=== PATIENT | male | born 1955 | race Caucasian/White ===

== ENCOUNTER 2016-12-07 09:52 | Outpatient (CLI) | payer OTHER | END 2016-12-07 19:11 | disposition home or self-care (01) | LOC: SMI 09:52 | PROVIDERS: ATTEND Psychiatry & Neurology Neurology | DX: M47.892 Other spondylosis, cervical region (principal); M47.894 Other spondylosis, thoracic region; M48.02 Spinal stenosis, cervical region; M25.78 Osteophyte, vertebrae | CPT/HCPCS: 72141; 72146 ==

== ENCOUNTER 2017-03-11 06:26 | Inpatient (IN) | payer OTHER ==
[~2017-03-11] VITALS: Ht 182.9 cm; Wt 106.6 kg
[2017-03-11 06:26] VITALS: BP_SYST 138
[2017-03-11] MEDS ORDERED: NACL 0.9% 1,000 ML IV ONE (06:46)
[2017-03-11] MEDS ORDERED: KETOROLAC TROMETHAMINE 30 MG VIAL IVP ONE (07:00)
[2017-03-11] MEDS ORDERED: ONDANSETRON HCL 4 MG/2 ML VIAL IVP ONE (07:00)
[2017-03-11 07:22] LABS: CREATININE 0.87 mg/dL (0.55-1.30)
[2017-03-11 07:23] LABS: BILIRUBIN,URINE NEGATIVE (NEGATIVE); CLARITY/URINE CLEAR (CLEAR); COLOR,URINE YELLOW (YELLOW); GLUCOSE,URINE NEGATIVE (NEGATIVE); KETONES,URINE NEGATIVE (NEGATIVE); LEUKOCYTE ESTERASE ,URINE NEGATIVE (NEGATIVE); NITRITE, URINE NEGATIVE (NEGATIVE); PH,URINE 6.5 (5.0-8.0); PROTEIN URINE NEGATIVE (NEGATIVE); UROBILINOGEN,URINE 0.2 (0.2-1.0)
[2017-03-11 07:24] LABS: BASOPHILS # (AUTO) 0.1 K/uL (0.0-0.2); BASOPHILS % (AUTO) 0.5 % (0.0-2.0); EOSINOPHILS # (AUTO) 0.1 K/uL (0.0-0.4); EOSINOPHILS % (AUTO) 0.5 % (0.0-4.0); HEMATOCRIT 47.5 % (36-54); HEMOGLOBIN 15.8 g/dL (14.0-18.0); LYMPHOCYTES # (AUTO) 2.1 K/uL (1.0-5.5); LYMPHOCYTES % (AUTO) 20.8 % (20.5-51.5); MEAN CORPUSCULAR HEMOGLOBIN 30 pg (27-31); MEAN CORPUSCULAR HGB CONC 33 % (32-36); MEAN CORPUSCULAR VOLUME 92 fL (79.0-98.0); MONOCYTES # (AUTO) 0.6 K/uL (0.0-1.0); MONOCYTES % (AUTO) 5.5 % (1.7-9.3); NEUTROPHILS # (AUTO) 7.2 K/uL (1.8-7.7); NEUTROPHILS % (AUTO) 72.7 % (40.0-70.0); PLATELET COUNT (AUTO) 404 K/uL (130-430); RED BLOOD CELL COUNT(AUTO) 5.18 MIL/uL (4.2-6.2); RED CELL DISTRIBUTION WIDTH 13.1 % (9.0-15.0); WHITE BLOOD COUNT (AUTO) 10.1 K/uL (4.8-10.8)
[2017-03-11 07:28] LABS: ALBUMIN 3.9 g/dL (3.4-4.8); TOTAL BILIRUBIN 0.7 mg/dL (0.0-1.0); TOTAL PROTEIN, SERUM 7.5 g/dL (6.4-8.3)
[2017-03-11 07:32] LABS: POTASSIUM 2.6 mmol/L (3.5-5.1)
[2017-03-11 07:41] LABS: BLOOD, URINE TRACE (NEGATIVE)
[2017-03-11] MEDS ORDERED: KCL 40 mEq in D5W 1000 mL 1,000 ML IV ONE (07:45)
[2017-03-11 07:51] LABS: BACTERIA,URINE FEW /HPF (None Seen); MUCUS,URINE 1+ /LPF (None Seen); WBC,URINE 0-3 /HPF (0-3)
[2017-03-11] MEDS ORDERED: POTASSIUM CHLORIDE 20 MEQ TAB.PRT.SR PO ONE (08:30)
[2017-03-11] MEDS ORDERED: HYDROmorphone 1 MG INJ. 1 MG/ML AMPUL IVP ONE (08:30)
[2017-03-11] MEDS ORDERED: HYDROcodone/ACETAMIN 10-325 MG TAB PO PRN (08:30)
[2017-03-11] MEDS ORDERED: METHOCARBAMOL 1000 MG/10 ML VIAL IVP SCH (08:45)
[2017-03-11] MEDS ORDERED: BENA40TA2 PO (08:56)
[2017-03-11] MEDS ORDERED: TRAM50TA2 PO (08:56)
[2017-03-11] MEDS ORDERED: HYDR12.585 PO (09:19)
[2017-03-11] MEDS ORDERED: LORA-259 PO (09:20)
[2017-03-11] MEDS ORDERED: LORazepam 2 MG/ML VIAL ONE (09:45)
[2017-03-11 09:54] VITALS: BP_SYST 114
[2017-03-11] MEDS: D5W IV SCH ×2 (11:10→17:29)
[2017-03-11] MEDS: METHOCARBAMOL IV SCH ×2 (11:10→17:29)
[2017-03-11] MEDS: NACL 0.9% 1,000 ML IV SCH ×2 (11:22→21:22)
[2017-03-11] MEDS ORDERED: MORPHINE 2 MG/ML INJ. SYRINGE IVP PRN (11:30)
[2017-03-11] MEDS ORDERED: ACETAMINOPHEN 325 MG TABLET PO PRN (11:30)
[2017-03-11] MEDS ORDERED: ONDANSETRON HCL 4 MG/2 ML VIAL IVP PRN (11:30)
[2017-03-11] MEDS: MORPHINE 2 MG/ML INJ. SYRINGE IVP PRN ×3 (11:56→21:47)
[2017-03-11 12:00] LABS: FREE T4 (FREE THYROXINE) 0.6 ng/dL (0.6-1.6); PHOSPHORUS 3.8 mg/dL (2.7-4.5); THYROID STIMULATING HORMONE 0.36 uIu/mL (0.34-4.82)
[2017-03-11] MEDS ORDERED: PANTOPRAZOLE SODIUM 40 MG/VIAL (PROTONIX) IVP ONE (12:15)
[2017-03-11 12:27] VITALS: BP_SYST 102
[2017-03-11] MEDS: LORazepam 2 MG/ML VIAL IVP PRN ×3 (14:07→23:11)
[2017-03-11 16:01] VITALS: BP_SYST 108
[2017-03-11 19:00] VITALS: BP_SYST 115
[2017-03-11] MEDS: BENAZEPRIL HCL 20 MG TABLET (LOTENSIN) PO SCH (21:00)
[2017-03-11] MEDS: DOCUSATE SODIUM 100 MG CAPSULE PO SCH (21:00)
[2017-03-11] MEDS ORDERED: BENAZEPRIL HCL 20 MG TABLET (LOTENSIN) PO SCH (21:00)
[2017-03-11] MEDS: ZOLPIDEM TARTRATE 5 MG TABLET PO SCH (21:01)
[2017-03-11 21:47] LABS: CALCIUM 7.8 mg/dL (8.4-11.0); CREATININE 0.69 mg/dL (0.55-1.30)
[2017-03-11 22:03] LABS: POTASSIUM 2.7 mmol/L (3.5-5.1)
[2017-03-12] MEDS ORDERED: KCL 40 mEq in 100 mL (PREMIX) 100 ML IV ONE ×2 (01:45→03:41)
[2017-03-12] MEDS: D5W IV SCH ×3 (01:50→17:45)
[2017-03-12] MEDS: METHOCARBAMOL IV SCH ×3 (01:50→17:45)
[2017-03-12] MEDS: MORPHINE 2 MG/ML INJ. SYRINGE IVP PRN ×5 (02:01→22:59)
[2017-03-12] MEDS: POTASSIUM CHLORIDE 40 MEQ in NS 250 ML IV SCH ×2 (02:08→05:35)
[2017-03-12] MEDS: LORazepam 2 MG/ML VIAL IVP PRN ×3 (04:52→14:33)
[2017-03-12 07:53] LABS: BASOPHILS % (AUTO) 0.3 % (0.0-2.0); EOSINOPHILS # (AUTO) 0.1 K/uL (0.0-0.4); HEMATOCRIT 41.3 % (36-54); LYMPHOCYTES # (AUTO) 2.5 K/uL (1.0-5.5); LYMPHOCYTES % (AUTO) 20.2 % (20.5-51.5); MEAN CORPUSCULAR HEMOGLOBIN 32 pg (27-31); MEAN CORPUSCULAR HGB CONC 34 % (32-36); MEAN CORPUSCULAR VOLUME 93 fL (79.0-98.0); MONOCYTES # (AUTO) 0.7 K/uL (0.0-1.0); MONOCYTES % (AUTO) 5.4 % (1.7-9.3); NEUTROPHILS # (AUTO) 9.3 K/uL (1.8-7.7); NEUTROPHILS % (AUTO) 73.1 % (40.0-70.0); PLATELET COUNT (AUTO) 320 K/uL (130-430); RED BLOOD CELL COUNT(AUTO) 4.44 MIL/uL (4.2-6.2); RED CELL DISTRIBUTION WIDTH 13.7 % (9.0-15.0); WHITE BLOOD COUNT (AUTO) 12.6 K/uL (4.8-10.8)
[2017-03-12 08:24] LABS: CALCIUM 8.1 mg/dL (8.4-11.0); CREATININE 0.71 mg/dL (0.55-1.30); PHOSPHORUS 2.8 mg/dL (2.7-4.5)
[2017-03-12] MEDS: NACL 0.9% 1,000 ML IV SCH ×2 (08:35→17:46)
[2017-03-12] MEDS: PANTOPRAZOLE SODIUM 40 MG/VIAL (PROTONIX) IVP SCH (08:35)
[2017-03-12] MEDS: BENAZEPRIL HCL 20 MG TABLET (LOTENSIN) PO SCH (08:36)
[2017-03-12] MEDS: HYDROCHLOROTHIAZIDE 12.5 MG CAPSULE (HCTZ) PO SCH (08:37)
[2017-03-12] MEDS: DOCUSATE SODIUM 100 MG CAPSULE PO SCH ×2 (08:37→20:05)
[2017-03-12 08:47] VITALS: BP_SYST 122
[2017-03-12 08:56] VITALS: BP_SYST 130
[2017-03-12 12:31] VITALS: BP_SYST 118
[2017-03-12] MEDS ORDERED: POTASSIUM CHLORIDE 20 MEQ TAB.PRT.SR PO ONE (15:30)
[2017-03-12 16:38] VITALS: BP_SYST 106
[2017-03-12] MEDS: ZOLPIDEM TARTRATE 5 MG TABLET PO SCH (20:04)
[2017-03-12 20:08] VITALS: BP_SYST 115
[2017-03-12 23:03] VITALS: BP_SYST 132
[2017-03-12 23:51] LABS: HEMOGLOBIN A1C 5.6 % (4.8-5.6)
[2017-03-13] MEDS: LORazepam 2 MG/ML VIAL IVP PRN ×2 (00:57→06:07)
[2017-03-13] MEDS: METHOCARBAMOL IV SCH (00:57)
[2017-03-13] MEDS: D5W IV SCH (00:57)
[2017-03-13 02:08] LABS: T4 (THYROXINE) 8.2 ug/dL (4.5-12.0)
[2017-03-13 04:24] VITALS: BP_SYST 104
[2017-03-13] MEDS: MORPHINE 2 MG/ML INJ. SYRINGE IVP PRN ×2 (04:42→09:04)
[2017-03-13] MEDS: NACL 0.9% 1,000 ML IV SCH (06:08)
[2017-03-13] MEDS: DOCUSATE SODIUM 100 MG CAPSULE PO SCH (09:00)
[2017-03-13] MEDS: BENAZEPRIL HCL 20 MG TABLET (LOTENSIN) PO SCH (09:06)
[2017-03-13] MEDS: HYDROCHLOROTHIAZIDE 12.5 MG CAPSULE (HCTZ) PO SCH (09:07)
[2017-03-13] MEDS: PANTOPRAZOLE SODIUM 40 MG/VIAL (PROTONIX) IVP SCH (09:07)
[2017-03-13 09:45] LABS: CALCIUM 8.1 mg/dL (8.4-11.0); CREATININE 0.66 mg/dL (0.55-1.30); POTASSIUM 3.6 mmol/L (3.5-5.1)
[2017-03-13 09:51] LABS: BASOPHILS # (AUTO) 0.1 K/uL (0.0-0.2); BASOPHILS % (AUTO) 0.5 % (0.0-2.0); EOSINOPHILS # (AUTO) 0.4 K/uL (0.0-0.4); EOSINOPHILS % (AUTO) 3.6 % (0.0-4.0); HEMATOCRIT 41.5 % (36-54); HEMOGLOBIN 14.3 g/dL (14.0-18.0); LYMPHOCYTES # (AUTO) 2.6 K/uL (1.0-5.5); LYMPHOCYTES % (AUTO) 24.3 % (20.5-51.5); MEAN CORPUSCULAR HEMOGLOBIN 32 pg (27-31); MEAN CORPUSCULAR HGB CONC 34 % (32-36); MEAN CORPUSCULAR VOLUME 92 fL (79.0-98.0); MONOCYTES # (AUTO) 0.5 K/uL (0.0-1.0); MONOCYTES % (AUTO) 4.8 % (1.7-9.3); NEUTROPHILS # (AUTO) 7.2 K/uL (1.8-7.7); NEUTROPHILS % (AUTO) 66.8 % (40.0-70.0); PLATELET COUNT (AUTO) 345 K/uL (130-430); RED BLOOD CELL COUNT(AUTO) 4.53 MIL/uL (4.2-6.2); RED CELL DISTRIBUTION WIDTH 13.4 % (9.0-15.0); WHITE BLOOD COUNT (AUTO) 10.8 K/uL (4.8-10.8)
[2017-03-13 09:54] LABS: ALBUMIN 3.5 g/dL (3.4-4.8); TOTAL BILIRUBIN 0.7 mg/dL (0.0-1.0); TOTAL PROTEIN, SERUM 7.2 g/dL (6.4-8.3)
[2017-03-13 10:17] VITALS: BP_SYST 128
[2017-03-13 12:44] VITALS: BP_SYST 121
== END 2017-03-13 11:30 | disposition home or self-care (01) | DRG 641 ==
LOC: SED 06:26 → STU 08:26 → SMU 03-12 20:43
PROVIDERS: ADMIT Internal Medicine Hospice and Palliative Medicine; ATTEND Internal Medicine Hospice and Palliative Medicine
DX: E86.0 Dehydration (principal); K52.9 Noninfective gastroenteritis and colitis, unspecified; K21.9 Gastro-esophageal reflux disease without esophagitis; I10 Essential (primary) hypertension; F41.9 Anxiety disorder, unspecified; M51.25 Other intervertebral disc displacement, thoracolumbar region; E87.6 Hypokalemia; Z88.6 Allergy status to analgesic agent; Z79.899 Other long term (current) drug therapy
CPT/HCPCS: 36415; 71010; 76700-TC; 80048; 80053; 80061; 81000-TC; 82150-TC; 83036; 83690-TC; 83735-TC; 83880; 84100-TC; 84436; 84439; 84443-TC; 84479; 85025; 87081; 93005; 96361; 96374; 96375; 99285; C9113; J1170; J1885; J2060; J2270; J2405; J2800; J3480; J7030; J7050; J7060

== ENCOUNTER 2017-03-29 05:04 | Emergency (ER) | payer OTHER ==
[~2017-03-29] VITALS: Ht 182.9 cm; Wt 104.3 kg
[~2017-03-29 05:04] MED LIST: BENA40TA2 PO; HYDR12.585 PO; LORA-259 PO; TRAM50TA2 PO
--- NOTE | 2017-03-29 05:04 | NUR ---
Patient to ER bed 4 to gown for evaluation. Side rails up. Report given to Gabe CARTWRIGHT.
[2017-03-29 05:05] VITALS: BP_SYST 140
--- NOTE | 2017-03-29 05:05 | NUR ---
Pt AAOx4, ambulatory with use of a cane. Pt states abdominal pain has been present for "several days", states pain is located in lower abdomen area. Pt states pain is sharp pain with pain scale 8/10, states has had difficulty urinating and difficulty with having bowel movements. Pt also states having chronic back pain for "several years". Pt denies any other complaints.
--- NOTE | 2017-03-29 05:20 | NUR ---
ER Dr. Celis at bedside examining patient.
[2017-03-29 06:01] LABS: BILIRUBIN,URINE 1+ (NEGATIVE); BLOOD, URINE 1+ (NEGATIVE); CLARITY/URINE CLEAR (CLEAR); COLOR,URINE YELLOW (YELLOW); GLUCOSE,URINE NEGATIVE (NEGATIVE); KETONES,URINE TRACE (NEGATIVE); LEUKOCYTE ESTERASE ,URINE NEGATIVE (NEGATIVE); NITRITE, URINE NEGATIVE (NEGATIVE); PROTEIN URINE 1+ (NEGATIVE)
[2017-03-29 06:05] LABS: BASOPHILS # (AUTO) 0.3 K/uL (0.0-0.2); BASOPHILS % (AUTO) 3.3 % (0.0-2.0); EOSINOPHILS # (AUTO) 0.1 K/uL (0.0-0.4); HEMATOCRIT 51.3 % (36-54); HEMOGLOBIN 16.5 g/dL (14.0-18.0); LYMPHOCYTES # (AUTO) 2.4 K/uL (1.0-5.5); LYMPHOCYTES % (AUTO) 24.3 % (20.5-51.5); MEAN CORPUSCULAR HEMOGLOBIN 30 pg (27-31); MEAN CORPUSCULAR HGB CONC 32 % (32-36); MEAN CORPUSCULAR VOLUME 94 fL (79.0-98.0); MONOCYTES # (AUTO) 0.6 K/uL (0.0-1.0); MONOCYTES % (AUTO) 6.1 % (1.7-9.3); NEUTROPHILS # (AUTO) 6.4 K/uL (1.8-7.7); NEUTROPHILS % (AUTO) 65.3 % (40.0-70.0); PLATELET COUNT (AUTO) 419 K/uL (130-430); RED BLOOD CELL COUNT(AUTO) 5.48 MIL/uL (4.2-6.2); WHITE BLOOD COUNT (AUTO) 9.8 K/uL (4.8-10.8)
[2017-03-29 06:09] LABS: BACTERIA,URINE MANY /HPF (None Seen)
[2017-03-29 06:10] LABS: HYALINE CASTS, URINE 0-10 /LPF (None Seen)
[2017-03-29 06:11] LABS: CALCIUM 9.3 mg/dL (8.4-11.0); CREATININE 1.05 mg/dL (0.55-1.30)
[2017-03-29 06:15] LABS: ALBUMIN 4.4 g/dL (3.4-4.8); TOTAL BILIRUBIN 0.9 mg/dL (0.0-1.0); TOTAL PROTEIN, SERUM 8.8 g/dL (6.4-8.3)
[2017-03-29 06:17] LABS: POTASSIUM 2.4 mmol/L (3.5-5.1)
--- NOTE | 2017-03-29 06:30 | NUR ---
# 22 gauge angiocath placed to Left hand. Use of asceptic technique. Blood return noted. Flushed with 10 cc of normal saline. No evidence of infiltration noted. Patient tolerated well.
[2017-03-29] MEDS ORDERED: HYDR-4100 PO (06:50)
--- NOTE | 2017-03-29 06:52 | NUR ---
Patient stable, no signs of distress noted. Will continue to monitor pt.
--- NOTE | 2017-03-29 06:53 | NUR ---
Medication reconciliation completed with information provided by patient. Any prior medication reconciliation on file was reviewed and corrected.
[2017-03-29] MEDS ORDERED: POTASSIUM CHLORIDE 20 MEQ TAB.PRT.SR PO ONE ×2 (07:00→09:45)
[2017-03-29] MEDS ORDERED: MORPHINE 4 MG/ML INJ. SYRINGE IVP ONE (07:00)
[2017-03-29] MEDS ORDERED: KCL 40 mEq in 100 mL (PREMIX) 100 ML IV ONE (07:00)
[2017-03-29] MEDS ORDERED: LEVOFLOXACIN 500 MG/D5W 100 ML IV ONE (07:00)
[2017-03-29] MEDS ORDERED: PHENAZOPYRIDINE HCL 100 MG TABLET PO ONE (07:00)
[2017-03-29] MEDS ORDERED: DIPHENHYDRAMINE INJ 50 MG/ML VIAL IVP ONE (07:00)
--- NOTE | 2017-03-29 07:04 | NUR ---
Patient stable, no signs of distress noted. Vital signs within therapeutic range.
[2017-03-29] MEDS ORDERED: KCL 20 mEq in 100 mL (PREMIX) 100 ML IV ONE ×2 (07:15→07:16)
[2017-03-29] MEDS ORDERED: NS 500 ML IV ONE (07:30)
--- NOTE | 2017-03-29 07:34 | NUR ---
Care of patient endorsed to CHAY Brandon.
--- NOTE | 2017-03-29 07:34 | NUR ---
Pt report received from CHAY Bernal. Pt AAOx4, denies c/o C/P or SOB. No needs verbalized at this time. Dr. Celis spoke with Dr. Osorio for admit. Dr. Osorio states that she will put admit orders in.
--- NOTE | 2017-03-29 07:40 | NUR ---
No Blood Cx drawn. Contacted lab. Levaquin 500 mg IV held at this time.
--- NOTE | 2017-03-29 07:50 | NUR ---
Blood Cx X 2 drawn per lab. Levaquin now infusing post draw. Pt held in ER r/t no admit orders entered per Dr. Osorio. Dr. Osorio paged, awaiting call back.
--- NOTE | 2017-03-29 08:23 | NUR ---
Received call back from Dr. Osorio for admit orders. Dr. Osorio states that she wants a repeat potassium prior to admit. Dr. Osorio states that if potassium is 3.0 or above, pt will be discharged. Pt also c/o anxiety and requests Ativan. Dr. Osorio states that she will put in the order.
--- NOTE | 2017-03-29 08:26 | NUR ---
Pt Potassium 40 Meq infusing at 25 mL/hr. Pt c/o burning to RFA. No s/s of IV infiltration. Potassium infusion rate decreased to 10 mL/hr. Pt denies c/o C/P or SOB.
--- NOTE | 2017-03-29 08:29 | NUR ---
Pt continues to c/o burning to RFA. Potassium infusion stopped. Dr. Osorio paged to notify. Awaiting call back.
[2017-03-29] MEDS ORDERED: LORazepam 2 MG/ML VIAL IVP ONE (08:30)
--- NOTE | 2017-03-29 08:33 | NUR ---
Spoke with Dr. Osorio. Asked to admit the patient. Informed that the IV potassium is burning pt and will be infusing at a slower rate. Also pt c/o anxiety. Dr. Osorio states that she ordered something for anxiety and she will be in to see the patient. No admission orders recieved at this time.
--- NOTE | 2017-03-29 09:03 | NUR ---
Pt c/o burning to IV site with potassium and NS. D/C'd at this time. Levaquin complete, NS moved to left wrist. IVF infusing with no s/sx of infiltration. Medicated with ativan 1mg IVP for per Dr. Osorio. VSS. Will continue to find another site for IV for potassium.
[2017-03-29] MEDS ORDERED: LORazepam 2 MG/ML VIAL (FOR ER USE) ONE (09:04)
--- NOTE | 2017-03-29 09:09 | NUR ---
Dr. Osorio at bedside for evaluation. She asked if repeat K has been drawn, I said no because the IV potassium has not infused. Only approx 10meq in. Lab called for repeat K draw.
--- NOTE | 2017-03-29 09:45 | NUR ---
Previous repeat potassium lab hemolyzed. Redrawn per lab.
--- NOTE | 2017-03-29 10:00 | NUR ---
Critical lab K+ 2.9 Hi CARTWRIGHT made aware.
--- NOTE | 2017-03-29 10:30 | NUR ---
Dr. Osorio notified of K 2.9. OK for discharge and to have pt follow up labs in AM.
[2017-03-29 10:49] VITALS: BP_SYST 122
--- NOTE | 2017-03-29 10:49 | NUR ---
Patient given written and verbal discharge instructions and verbalizes understanding. Dr. Osorio discussed with patient the results and treatment provided. Patient in stable condition. ID arm band removed. IV catheter removed intact and dressing applied, no active bleeding. Pt given RX for Chem [address] Osorio for tomorrow morning. Advised to not take HCTZ unless he takes his potassium. Patient educated on pain management and to follow up with PMD. Pain Scale 2/10. Opportunity for questions provided and answered.
== END 2017-03-29 10:49 | disposition home or self-care (01) ==
LOC: SED 05:04
DX: N39.0 Urinary tract infection, site not specified (principal); E87.6 Hypokalemia; K21.9 Gastro-esophageal reflux disease without esophagitis; I10 Essential (primary) hypertension; Z90.89 Acquired absence of other organs; F41.9 Anxiety disorder, unspecified; Z88.8 Allergy status to other drugs, medicaments and biological substances
CPT/HCPCS: 36415; 74000; 80053; 81000; 83605; 83690; 84132; 85025; 87040; 87081; 87086; 87186; 93005; 96365; 96366; 96368; 96375; 99285; J1200; J1956; J2060; J2270; J3480; J7030

== ENCOUNTER 2017-04-01 14:06 | Emergency (ER) | payer OTHER ==
[~2017-04-01] VITALS: Ht 182.9 cm; Wt 104.3 kg
[2017-04-01 14:06] VITALS: BP_SYST 125
[~2017-04-01 14:06] MED LIST changes: +HYDR-4100 PO
[2017-04-01] MEDS ORDERED: NACL 0.9% 1,000 ML IV ONE ×2 (15:31→17:15)
[2017-04-01 16:15] LABS: BASOPHILS # (AUTO) 0.2 K/uL (0.0-0.2); EOSINOPHILS % (AUTO) 0.5 % (0.0-4.0); RED BLOOD CELL COUNT(AUTO) 4.86 MIL/uL (4.2-6.2)
[2017-04-01 16:20] LABS: CALCIUM 9.1 mg/dL (8.4-11.0); CREATININE 0.73 mg/dL (0.55-1.30)
[2017-04-01 16:21] LABS: BASOPHILS % (AUTO) 2.4 % (0.0-2.0); HEMATOCRIT 45.3 % (36-54); HEMOGLOBIN 14.8 g/dL (14.0-18.0); LYMPHOCYTES # (AUTO) 1.7 K/uL (1.0-5.5); LYMPHOCYTES % (AUTO) 21.5 % (20.5-51.5); MEAN CORPUSCULAR HEMOGLOBIN 31 pg (27-31); MEAN CORPUSCULAR HGB CONC 33 % (32-36); MEAN CORPUSCULAR VOLUME 93 fL (79.0-98.0); MONOCYTES # (AUTO) 0.5 K/uL (0.0-1.0); MONOCYTES % (AUTO) 6.4 % (1.7-9.3); NEUTROPHILS # (AUTO) 5.6 K/uL (1.8-7.7); NEUTROPHILS % (AUTO) 69.2 % (40.0-70.0); PLATELET COUNT (AUTO) 390 K/uL (130-430); RED CELL DISTRIBUTION WIDTH 12.8 % (9.0-15.0)
[2017-04-01 16:25] LABS: ALBUMIN 3.9 g/dL (3.4-4.8); TOTAL BILIRUBIN 0.8 mg/dL (0.0-1.0)
[2017-04-01 16:47] LABS: POTASSIUM 2.9 mmol/L (3.5-5.1)
[2017-04-01 16:59] LABS: BILIRUBIN,URINE 1+ (NEGATIVE); CLARITY/URINE CLEAR (CLEAR); COLOR,URINE YELLOW (YELLOW); GLUCOSE,URINE NEGATIVE (NEGATIVE); KETONES,URINE 1+ (NEGATIVE); LEUKOCYTE ESTERASE ,URINE NEGATIVE (NEGATIVE); NITRITE, URINE NEGATIVE (NEGATIVE); PROTEIN URINE NEGATIVE (NEGATIVE)
[2017-04-01 17:00] LABS: BLOOD, URINE TRACE (NEGATIVE)
[2017-04-01] MEDS ORDERED: POTASSIUM CHLORIDE 20 MEQ TAB.PRT.SR PO ONE (17:15)
[2017-04-01] MEDS ORDERED: BISACODYL 5 MG TABLET.DR (DULCOLAX) PO ONE (17:15)
[2017-04-01] MEDS ORDERED: KETOROLAC TROMETHAMINE 30 MG VIAL IVP ONE (17:15)
[2017-04-01] MEDS ORDERED: LORazepam 2 MG/ML VIAL (FOR ER USE) IVP ONE ×2 (17:15→18:00)
[2017-04-01 17:25] LABS: BACTERIA,URINE FEW /HPF (None Seen); FINE GRANULAR CASTS,URINE 0-2 /LPF (None Seen); MUCUS,URINE 1+ /LPF (None Seen); WBC,URINE 0-3 /HPF (0-3)
[2017-04-01] MEDS ORDERED: MORPHINE 2 MG/ML INJ. SYRINGE IVP ONE ×2 (18:15→19:30)
[2017-04-01] MEDS ORDERED: MAGNESIUM CITRATE 300 ML ORAL SOLUTION PO ONE (18:30)
[2017-04-01 19:50] VITALS: BP_SYST 114
== END 2017-04-01 19:50 | disposition home or self-care (01) ==
LOC: SED 14:06
DX: K59.03 Drug induced constipation (principal); T40.605A Adverse effect of unspecified narcotics, initial encounter; K21.9 Gastro-esophageal reflux disease without esophagitis; I10 Essential (primary) hypertension; Z88.8 Allergy status to other drugs, medicaments and biological substances; Y92.89 Other specified places as the place of occurrence of the external cause
CPT/HCPCS: 36415; 51702; 80053; 81000; 83690; 85025; 96361; 96374; 96375; 96376; 99284; J1885; J2060; J2270; J7030

== ENCOUNTER 2017-05-06 12:43 | Emergency (ER) | payer OTHER ==
[~2017-05-06] VITALS: Ht 182.9 cm; Wt 106.6 kg
[2017-05-06 12:47] VITALS: BP_SYST 119
--- NOTE | 2017-05-06 12:52 | NUR ---
Patient to ER bed 04 to gown for evaluation. Side rails up. Report given to Maryjane.
--- NOTE | 2017-05-06 12:55 | NUR ---
Pt brought by Violeta DELUNA&Ox4, pt c/o urinary retention, suprapubic pain 05/29 starting 4 days ago, denies bleeding , pt states "my prostate must be inflamed", afebrile , skin pink and warm, repsirations even and unlabored, student at bedside.
[2017-05-06] MEDS ORDERED: NACL 0.9% 1,000 ML IV ONE ×2 (13:15→16:15)
[2017-05-06] MEDS ORDERED: MORPHINE 4 MG/ML INJ. SYRINGE IVP ONE (13:30)
--- NOTE | 2017-05-06 13:30 | NUR ---
THEODORA Rocha at bedside examining patient.
--- NOTE | 2017-05-06 13:30 | NUR ---
Pt was given pain medication, no noted adverse reaction, will continue to monitor.
[2017-05-06 13:32] LABS: BASOPHILS # (AUTO) 0.1 K/uL (0.0-0.2); BASOPHILS % (AUTO) 1.2 % (0.0-2.0); EOSINOPHILS % (AUTO) 0.3 % (0.0-4.0); HEMATOCRIT 48.4 % (36-54); HEMOGLOBIN 15.5 g/dL (14.0-18.0); LYMPHOCYTES % (AUTO) 24.4 % (20.5-51.5); MEAN CORPUSCULAR HEMOGLOBIN 30 pg (27-31); MEAN CORPUSCULAR HGB CONC 32 % (32-36); MEAN CORPUSCULAR VOLUME 93 fL (79.0-98.0); MONOCYTES # (AUTO) 0.4 K/uL (0.0-1.0); NEUTROPHILS # (AUTO) 5.6 K/uL (1.8-7.7); NEUTROPHILS % (AUTO) 69.1 % (40.0-70.0); PLATELET COUNT (AUTO) 358 K/uL (130-430); RED BLOOD CELL COUNT(AUTO) 5.23 MIL/uL (4.2-6.2); RED CELL DISTRIBUTION WIDTH 13.1 % (9.0-15.0); WHITE BLOOD COUNT (AUTO) 8.1 K/uL (4.8-10.8)
[2017-05-06 13:46] LABS: CALCIUM 8.8 mg/dL (8.4-11.0); CREATININE 0.77 mg/dL (0.55-1.30); POTASSIUM 3.2 mmol/L (3.5-5.1)
[2017-05-06 13:51] LABS: TOTAL BILIRUBIN 0.9 mg/dL (0.0-1.0)
[2017-05-06] MEDS ORDERED: POTASSIUM CHLORIDE 10 MEQ TAB.PRT.SR PO ONE (14:30)
--- NOTE | 2017-05-06 14:30 | NUR ---
Safia and student RN's placed a stone, pt tolerated it well.
[2017-05-06 14:54] LABS: BILIRUBIN,URINE 2+ (NEGATIVE); BLOOD, URINE 3+ (NEGATIVE); CLARITY/URINE CLEAR (CLEAR); COLOR,URINE YELLOW (YELLOW); GLUCOSE,URINE NEGATIVE (NEGATIVE); KETONES,URINE 3+ (NEGATIVE); LEUKOCYTE ESTERASE ,URINE NEGATIVE (NEGATIVE); NITRITE, URINE NEGATIVE (NEGATIVE); PROTEIN URINE 1+ (NEGATIVE); UROBILINOGEN,URINE 0.2 (0.2-1.0)
--- NOTE | 2017-05-06 14:55 | NUR ---
Pt has complaints of anxiety, Dr Rosado is aware and explained to pt that he would not give anxiety medication and pain medication to the patient.
[2017-05-06 14:59] LABS: BACTERIA,URINE FEW /HPF (None Seen); RBC,URINE 20-50 /HPF (0-3); WBC,URINE 0-3 /HPF (0-3)
[2017-05-06 15:00] LABS: MUCUS,URINE 1+ /LPF (None Seen)
--- NOTE | 2017-05-06 15:15 | NUR ---
Endorsed care to Evan CARTWRIGHT
--- NOTE | 2017-05-06 15:25 | NUR ---
Patient c/o increasing anxiety, asking for Ativan and when will Dr be in to see him, Dr Rosado was notified of patient's request and states that he will be in to see him. No additional orders received.
--- NOTE | 2017-05-06 16:00 | NUR ---
Dr Rosado at bedside speaking with patient, regarding results and plan of care. Questions answered by Dr Rosado
[2017-05-06] MEDS ORDERED: TAMSULOSIN HCL 0.4 MG CAP PO SCH (16:15)
[2017-05-06] MEDS ORDERED: LORazepam 2 MG/ML VIAL (FOR ER USE) IVP ONE (16:15)
--- NOTE | 2017-05-06 16:24 | NUR ---
Awaiting Flomax to come from pharmacy. Will medicate as soon as medication arrives. Patient resting quietly in nad. Dr Rosado states that the second IV order was placed as a duplicate and that the patient does not need to receive it before he is discharged.
--- NOTE | 2017-05-06 16:35 | NUR ---
Patient medicated with Flomax, and Ativan as ordered. Patient states that his friend will not be able to come until 6:30 to 7 pm, patient calling for taxi.
--- NOTE | 2017-05-06 17:10 | NUR ---
No adverse reaction noted to medication. Patient escorted to exit via wheelchair to wait for taxi.
--- NOTE | 2017-05-06 17:10 | NUR ---
Patient given written and verbal discharge instructions and verbalizes understanding. ER MD discussed with patient the results and treatment provided. Patient in stable condition. ID arm band removed. IV catheter removed intact and dressing applied, no active bleeding. Rx of Flomax given. Patient educated on pain management and to follow up with PMD. Pain Scale 2. Opportunity for questions provided and answered.
[2017-05-06 17:21] VITALS: BP_SYST 120
== END 2017-05-06 17:21 | disposition home or self-care (01) ==
LOC: SED 12:43
DX: N40.0 Benign prostatic hyperplasia without lower urinary tract symptoms (principal); G89.29 Other chronic pain; F41.9 Anxiety disorder, unspecified; F17.200 Nicotine dependence, unspecified, uncomplicated; K21.9 Gastro-esophageal reflux disease without esophagitis; I10 Essential (primary) hypertension; Z88.8 Allergy status to other drugs, medicaments and biological substances
CPT/HCPCS: 36415; 51702; 80053; 81000; 85025; 96361; 96374; 96375; 99284; J2060; J2270; J7030

== ENCOUNTER 2017-05-25 12:38 | Emergency (ER) | payer OTHER ==
[~2017-05-25] VITALS: Ht 177.8 cm; Wt 90.7 kg
[2017-05-25 12:38] VITALS: BP_SYST 146
[2017-05-25] MEDS ORDERED: ONDANSETRON HCL 4 MG/2 ML VIAL IM ONE (15:15)
[2017-05-25] MEDS ORDERED: HYDROmorphone 2 MG/ML VIAL IM ONE (15:15)
[2017-05-25] MEDS ORDERED: HYDROmorphone 2 MG/ML VIAL ONE (15:27)
[2017-05-25] MEDS ORDERED: ONDANSETRON HCL 4 MG/2 ML VIAL ONE (15:27)
[2017-05-25 15:34] VITALS: BP_SYST 137
== END 2017-05-25 15:34 | disposition home or self-care (01) ==
LOC: SED 13:07
DX: M79.662 Pain in left lower leg (principal); M79.661 Pain in right lower leg; K21.9 Gastro-esophageal reflux disease without esophagitis; I10 Essential (primary) hypertension; F41.9 Anxiety disorder, unspecified; Z88.8 Allergy status to other drugs, medicaments and biological substances
CPT/HCPCS: 99283; J1170; J2405

== ENCOUNTER 2017-07-13 09:38 | Emergency (ER) | payer OTHER ==
[~2017-07-13] VITALS: Ht 182.9 cm; Wt 108.9 kg
[2017-07-13 09:42] VITALS: BP_SYST 115
[2017-07-13] MEDS ORDERED: HYDROmorphone 2 MG/ML VIAL IM ONE (11:00)
[2017-07-13 12:56] VITALS: BP_SYST 144
== END 2017-07-13 12:56 | disposition home or self-care (01) ==
LOC: SED 09:38
DX: M54.40 Lumbago with sciatica, unspecified side (principal); K21.9 Gastro-esophageal reflux disease without esophagitis; I10 Essential (primary) hypertension; F41.9 Anxiety disorder, unspecified; Z88.8 Allergy status to other drugs, medicaments and biological substances
CPT/HCPCS: 96372; 99283; J1170

== ENCOUNTER 2017-07-16 08:10 | Emergency (ER) | payer OTHER ==
[~2017-07-16] VITALS: Ht 182.9 cm; Wt 97.5 kg
[2017-07-16 08:18] VITALS: BP_SYST 128
[2017-07-16] MEDS ORDERED: KETOROLAC TROMETHAMINE 60 MG/2 ML VIAL IM ONE (10:00)
== END 2017-07-16 15:49 | disposition left against medical advice (07) ==
LOC: SED 08:10
DX: G89.29 Other chronic pain (principal); M54.5 Low back pain; K21.9 Gastro-esophageal reflux disease without esophagitis; I10 Essential (primary) hypertension; F41.9 Anxiety disorder, unspecified; Z88.8 Allergy status to other drugs, medicaments and biological substances; Z53.20 Procedure and treatment not carried out because of patient's decision for unspecified reasons
CPT/HCPCS: 96372; 99283; J1885